=== PATIENT | female | born 1945 | race Caucasian/White ===

== ENCOUNTER 2022-03-02 18:49 | Emergency (ER) | payer MEDICARE, BC ==
--- NOTE | 2022-03-02 19:50 | ERPHSYRPT ---
- History of Present Illness Time Seen by Provider: 03/02/22 19:47 Source: patient Exam Limitations: no limitations Patient Subjective Stated Complaint: PT HERE FOR RIGH LOWER BACK PAIN AFTER BENDING OVER A COUPLE DAYS AGO,SHE STATES RADIATES TO BUTTUCK Triage Nursing Assessment: PT ALERT, WEARS HOME O2 AT 3 LNC, CHEST DIMINNISHED, NO COUGH, SKIN W/D/P. SCALEY PATCHES TO FEET, Physician History: This is a 76-year-old white female who was brought to the emergency department via EMS secondary to significant right side lumbar level back pain. Patient experienced sudden onset of right side lower back pain approximately 2 days ago. It has not improved. In fact, patient states the pain is radiating down to her right buttock. Patient denies any acute traumatic fall. Patient has a history of CHF and COPD. She has no fever. She has no chest pain. She is chronically short of breath and has a cough chronically. Neither 1 of these symptoms have changed. She has no abdominal pain. Timing/Duration: day(s) (2) Method of Injury: bending, twisted, turning Back Pain Location: lumbar spine Back Pain Radiation: buttocks Severity of Pain-Max: moderate Severity of Pain-Current: moderate Associated Symptoms: lower back pain, No urinary incontinence, No loss of bowel control, No problems urinating, No numbness in legs/feet, No sensory/motor loss, No tingling in legs/feet Previous symptoms: no prior history Allergies/Adverse Reactions: No Known Drug Allergies Allergy (Verified 03/02/22 18:59) Home Medications: Albuterol Sulfate [Proventil Hfa] 1 puff IH Q4HPRN PRN 12/31/14 [History] Tiotropium [place] Inhaler [Spiriva 18 Mcg/Cap Inhaler] 1 ea IH DAILY 12/31/14 [History] Furosemide [Lasix] 20 mg PO BID 05/27/15 [History] Potassium Chloride 20 Meq [Klor-Con 20 MEQ] 20 meq PO DAILY 05/27/15 [History] Hx Tetanus, Diphtheria Vaccination/Date Given: Yes Hx Influenza Vaccination/Date Given: Yes Hx Pneumococcal Vaccination/Date Given: Yes Immunizations Up to Date: Yes Travel Risk - International Travel Have you traveled outside of the country in past 3 weeks: No - Coronavirus Screening Are you exhibiting any of the following symptoms?: No - Vaccine Status Have you recieved a Covid-19 vaccination: Yes 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 - Vaccination Dates Date of 2cond Vaccination (if applicable): 2020 - Review of Systems Constitutional: No Symptoms Eyes: No Symptoms Ears, Nose, & Throat: No Symptoms Respiratory: No Symptoms Cardiac: No Symptoms Abdominal/Gastrointestinal: No Symptoms Genitourinary Symptoms: No Symptoms Musculoskeletal: Back Pain (Right lower lumbar pain), No Fall Skin: No Symptoms Neurological: No Symptoms Psychological: No Symptoms Endocrine: No Symptoms Hematologic/Lymphatic: No Symptoms Immunological/Allergic: No Symptoms All Other Systems: Reviewed and Negative - Past Medical History Pertinent Past Medical History: Yes Neurological History: No Pertinent History ENT History: No Pertinent History Cardiac History: No Pertinent History Respiratory History: COPD Endocrine Medical History: No Pertinent History Musculoskeletal History: Degenerative Disk Disease, Other GI Medical History: No Pertinent History History: No Pertinent History Psycho-Social History: No Pertinent History Female Reproductive Disorders: No Pertinent History Other Medical History: Sciatica with spinal OR. myocarditis - Past Surgical History Past Surgical History: Yes Neuro Surgical History: No Pertinent History Cardiac: No Pertinent History Respiratory: No Pertinent History Gastrointestinal: Appendectomy, Cholecystectomy Genitourinary: No Pertinent History Musculoskeletal: No Pertinent History Female Surgical History: No Pertinent History Other Surgical History: Spinal OR. tonsils - Social History Smoking Status: Never smoker Exposure to second hand smoke: No Drug Use: none Patient Lives Alone: No - Female History Hx Now: No (N) - Nursing Vital Signs Nursing Vital Signs: Initial Vital Signs Temperature 96.8 F 03/02/22 18:51 Pulse Rate 78 03/02/22 18:51 Blood Pressure 106/74 03/02/22 18:51 O2 Sat by Pulse Oximetry 100 03/02/22 18:51 Pain Scale Pain Intensity [Right Back] 8 Pain Intensity 8 - Physical Exam General Appearance: no apparent distress, alert, anxiety, thin Eye Exam: PERRL/EOMI, eyes nml inspection Ears, Nose, Throat Exam: normal ENT inspection Neck Exam: normal inspection, non-tender, supple, full range of motion Respiratory Exam: normal breath sounds, lungs clear, airway intact, No chest tenderness, No respiratory distress Gastrointestinal Exam: No tenderness Pelvic Exam: not done Rectal Exam: not done Back Exam: decreased range of motion, muscle spasm, No CVA tenderness, No vertebral tenderness Extremity Exam: normal inspection, normal range of motion, pelvis stable Neurologic Exam: alert, oriented x 3, cooperative, wireless cellular technician II-XII nml as tested, normal mood/affect Skin Exam: normal color, warm, dry Lymphatic Exam: No adenopathy SpO2 Interpretation: normal SpO2: 100 O2 Delivery: Room Air - Course Nursing assessment & vital signs reviewed: Yes Ordered Tests: Active Orders 24 hr Category Date Time Status IV Insertion STAT Care 03/02/22 20:38 Active LUMBAR SPINE W/O [CT] Routine Exams 03/02/22 19:39 Taken UA W/RFX CULTURE Stat Lab 03/02/22 Ordered Medication Summary Generic Name Dose Route Start Last Admin Trade Name Freq PRN Reason Stop Dose Admin Sodium Chloride 500 mls @ 500 mls/hr 03/02/22 20:38 Sodium Chloride 0.9% 500 Ml IV 03/02/22 21:37 .Q1H ONE Discontinued Medications Generic Name Dose Route Start Last Admin Trade Name Freq PRN Reason Stop Dose Admin Albuterol/Ipratropium Confirm 03/02/22 20:23 Ipratropium/Albuterol Sulfate 3 Ml Ampul.Neb Administered 03/02/22 20:24 Dose 3 ml IH .STK-MED ONE Methylprednisolone Sodium 0 mg 03/02/22 20:39 Succinate 125 mg/ Sterile IV 03/02/22 20:40 Water 2 ml STAT ONE Orphenadrine Citrate 60 mg 03/02/22 20:40 Orphenadrine Citrate 60 Mg/2 Ml Vial IV 03/02/22 20:41 STAT ONE - Progress Progress: improved, pain not gone completely Progress Note: 03/02/22 19:58 I originally ordered a plain film x-ray of the lumbar spine. However, the patient was having difficulty moving rotating and therefore the electronic engineering technician, Levi, asked if we could do a CAT scan of the lumbar spine. I agreed. 03/02/22 20:41 CAT scan of the lumbar spine shows mild to moderate multilevel degenerative disc disease. There is negative large disc herniation or spinal canal stenosis. There is soft tissue findings including extensive arterial sclerosis disease and an infrarenal abdominal aortic aneurysm measuring 2.6 x 2.7 cm. Counseled pt/family regarding: diagnosis, need for follow-up, rad results - Departure Departure Disposition: Home Clinical Impression: Back pain Condition: Stable Critical Care Time: No Referrals: KEZIA KATHLEEN NP [Primary Care Provider] - Follow up/PCP as directed Additional Instructions: Take your medication as prescribed. Drink plenty of fluids. Follow-up with your primary care provider for further management. Prescriptions: Prednisone 10 mg [Deltasone 10 mg] 10 mg PO TID #12 tablet Orphenadrine Citrate 100 mg [Norflex 100 MG Tablet] 100 mg PO BID #10 tab
[2022-03-02] MEDS ORDERED: DUONEB 0.5-3 MG/3 ml Neb IH ONE ×2 (20:23→20:30)
[2022-03-02] MEDS ORDERED: Sodium Chloride 0.9% 500 ML 500 ML IV ONE ×2 (20:38→20:48)
[2022-03-02] MEDS ORDERED: solu-MEDROL 125 MG, Sterile H2O 10 ml 2 ML IV ONE ×2 (20:39)
[2022-03-02] MEDS ORDERED: Norflex 60 MG/2 ML IV ONE (20:40)
[2022-03-02] MEDS ORDERED: Norflex 60 MG/2 ML ONE (20:48)
[2022-03-02] MEDS ORDERED: Sterile H2O 10 ml IJ ONE (20:48)
[2022-03-02] MEDS ORDERED: solu-MEDROL ONE (20:48)
[2022-03-02 22:28] LABS: Absolute Neutrophil Ct (ANC) 14.85 x10^3/uL (1.4-6.9); Basophil (Absolute #) 0.05 x10^3/uL (0-0.4); Eosinophil % 0.1 % (0.00-5.0); Eosinophil (Absolute #) 0.02 x10^3/uL (0-0.5); Hematocrit 38.7 % (35-47); Hemoglobin 12.7 g/dL (12.0-16.0); Lymphocyte (Absolute #) 0.67 x10^3/uL (1.0-4.6); Lymphocytes % 4.1 % (24.0-44.0); Mean Cell Volume 104.6 fL (78-100); Mean Corpuscular Hemoglobin 34.3 pg (26-32); Mean Corpuscular Hgb Concent. 32.8 g/dL (32-36); Mean Platelet Volume 11.8 fL (7.5-11.0); Monocyte (Absolute #) 0.69 x10^3/uL (0.0-1.3); Monocytes % 4.2 % (0.0-12.0); Neutrophil % 89.8 % (36.0-66.0); Platelet Count 83 x10^3/uL (150-450); Red Cell Distribution Width 13.9 % (11.5-14.0); White Blood Count 16.5 x10^3/uL (4.0-10.5)
[2022-03-02 22:31] LABS: Appearance SLIGHTLY CLOUDY (CLEAR); Bilirubin MODERATE (NEGATIVE); Dipstick done @ ? MAIN LAB; Glucose NEGATIVE (NEGATIVE); Ketones TRACE (NEGATIVE); Nitrite NEGATIVE (NEGATIVE); Ph 5.5 (5-6); Protein,Urine Dip 30 (Negative); RBC NEGATIVE Ery/ul (0-5); Urobilinogen 1 mg/dL (0-1)
[2022-03-02 22:32] LABS: Urine Cultured Indicated? NO
[2022-03-02 22:45] LABS: Calcium 9.2 mg/dL (8.4-10.2); Creatinine 1 0.99 mg/dL (0.52-1.04); Potassium 3.3 mmol/L (3.5-5.1)
[2022-03-02] MEDS ORDERED: Klor Con PO ONE ×2 (22:56→23:02)
[2022-03-02 23:08] VITALS: BP 107/56; PULSE 113; O2SAT 99
== END 2022-03-02 23:30 | disposition home or self-care (01) ==
LOC: ED 18:49
DX: M54.50 Low back pain, unspecified (principal); D72.829 Elevated white blood cell count, unspecified; E86.0 Dehydration; E87.6 Hypokalemia; J44.9 Chronic obstructive pulmonary disease, unspecified; Z79.899 Other long term (current) drug therapy; Z79.52 Long term (current) use of systemic steroids
CPT/HCPCS: 36000; 36415; 72131; 80048; 81015; 85025; 94640; 96360; 96374; 96375; 99284; J2360; J2930; A9270-GY